=== PATIENT | male | born 1965 | race Caucasian/White ===

== ENCOUNTER 2017-03-17 14:14 | Outpatient (CLI) | payer OTHER ==
--- NOTE | 2017-03-17 15:09 | DIAGNOSTIC IMAGING REPORT ---
PROCEDURE: XR FOOT 3 VIEWS - LEFT INDICATION: PAIN LEFT HEEL TECHNIQUE: Three views. COMPARISON: None. FINDINGS: There is a calcaneal spur. IMPRESSION: 1. Calcaneal spur.
--- NOTE | 2017-03-17 15:09 | DIAGNOSTIC IMAGING REPORT ---
PROCEDURE: XR FOOT 3 VIEWS - LEFT INDICATION: PAIN LEFT HEEL TECHNIQUE: Three views. COMPARISON: None. FINDINGS: There is a calcaneal spur. IMPRESSION: 1. Calcaneal spur.
--- NOTE | 2017-03-17 15:27 | DIAGNOSTIC IMAGING REPORT ---
PROCEDURE: XR OSCALCIS - LEFT INDICATION: HEEL PAIN TECHNIQUE: Three views left heel COMPARISON: Left foot films FINDINGS: Calcaneal spur. IMPRESSION: 1. Calcaneal spur.
--- NOTE | 2017-03-17 15:27 | DIAGNOSTIC IMAGING REPORT ---
PROCEDURE: XR OSCALCIS - LEFT INDICATION: HEEL PAIN TECHNIQUE: Three views left heel COMPARISON: Left foot films FINDINGS: Calcaneal spur. IMPRESSION: 1. Calcaneal spur.
== END 2017-03-17 23:00 ==
LOC: XR SRH 14:14
DX: M77.32 Calcaneal spur, left foot (principal)